=== PATIENT | female | born 1965 | race Hispanic/Latino ===

== ENCOUNTER → 2018-04-12 | Outpatient (CLI) | payer MEDICARE, OTHER ==
[~2018-04-12] MED LIST: REGADENOSON 0.4 MG/5 ML SYR IV ONE
--- NOTE | 2018-04-14 12:32 | Cardiology Report ---
DATE OF STUDY: April 12, 2018 PROCEDURE PERFORMED: Lexiscan stress test. PROCEDURE INDICATION: Chest pain. INTERPRETATION: Rest heart rate was 69, blood pressure 109/77. Resting EKG was normal sinus rhythm with nonspecific repolarization abnormality. After Lexiscan was administered, heart rate chester to 122 beats per minute, blood pressure decreased to 105/69. There were no significant ST changes or arrhythmias throughout stress or recovery. Myocardial perfusion reveals normal rest and stress perfusion. Gated images demonstrate hyperdynamic left ventricular systolic function, normal regional wall motion and left ventricular ejection fraction more than 70%. CONCLUSIONS 1. Normal hemodynamic response to Lexiscan stress. 2. Normal electrocardiographic response to Lexiscan stress. 3. Normal myocardial perfusion at rest and stress. 4. Hyperdynamic left ventricular systolic function with left ventricular ejection fraction more than 70%. Job#: [id number] [email or web address]
== END ==
LOC: NM 08:36
PROVIDERS: ATTEND Internal Medicine Cardiovascular Disease
DX: R07.9 Chest pain, unspecified (principal)
CPT/HCPCS: 78452; 93017; A9502; J2785